=== PATIENT | female | born 1970 | race Caucasian/White ===

== ENCOUNTER 2023-07-20 13:22 | Emergency (ER) | payer SELFPAY ==
[2023-07-20] MEDS ORDERED: Acetaminophen 500 MG TAB ONE (15:49)
== END 2023-07-20 16:12 | disposition home or self-care (01) ==
LOC: ERS 13:22
DX: R07.81 Pleurodynia (principal); F17.290 Nicotine dependence, other tobacco product, uncomplicated
CPT/HCPCS: 93005